=== PATIENT | male | born 1985 | race Caucasian/White ===

== ENCOUNTER 2017-05-05 09:25 | Day surgery (SDC) | payer BC ==
[~2017-05-05 09:25] MED LIST: Bupivacaine 25%/EPINEPHrine/PF 30 ML ONE; Lactated Ringers 1,000 ML IV SCH; Octyl 2-Cyanoacrylate 1 Tube ONE; ceFAZolin 2 GM in Premix Bag 1 BAG IV ONE
[2017-05-05] MEDS ORDERED: Succinylcholine/Normal Saline 200 MG/10 ML Syringe ONE (10:03)
[2017-05-05] MEDS ORDERED: fentaNYL 100 MCG/2 ML SDV ONE (10:03)
[2017-05-05] MEDS ORDERED: Lidocaine 2% 5 ML SDV ONE (10:03)
[2017-05-05] MEDS ORDERED: Propofol 200 MG/20 ML SDV ONE (10:03)
[2017-05-05] MEDS ORDERED: Rocuronium 10 MG/ML 10 ML Syringe ONE (10:03)
[2017-05-05] MEDS ORDERED: Midazolam 1 MG/ML 2 ML SDV ONE (10:04)
[2017-05-05] MEDS ORDERED: Sodium Chloride 0.9% 20 ML ONE (10:10)
[2017-05-05] MEDS ORDERED: ceFAZolin 1 GM Vial ONE (10:10)
[2017-05-05] MEDS ORDERED: fentaNYL 100 MCG/2 ML SDV IVPUSH PRN (10:24)
--- NOTE | 2017-05-05 10:44 | PCM.PREANE ---
Preanesthetic Assessment - Anesthesia/Transfusion/Family Hx Anesthesia History: Prior Anesthesia Without Reaction Family History of Anesthesia Reaction: No Transfusion History: No Prior Transfusion(s) Intubation History: Unknown - Review of Systems General: No Symptoms Pulmonary: No Symptoms Cardiovascular: No Symptoms Gastrointestinal: No Symptoms Neurological: No Symptoms Other: Reports: None - Physical Assessment NPO Status Date: 05/04/17 NPO Status Time: 23:00 O2 Sat by Pulse Oximetry: 96 Respiratory Rate: 16 Vital Signs: Last Vital Signs Temp Pulse 71 05/05/17 09:35 Resp 16 05/05/17 09:35 BP 134/80 05/05/17 09:35 Pulse Ox 96 05/05/17 09:35 Height: 1.78 m Weight: 98.883 kg ASA Class: 2 Mental Status: Alert & Oriented x3 Airway Class: Mallampati = 2 Dentition: Reports: Normal Dentition Thyro-Mental Finger Breadths: 3 Mouth Opening Finger Breadths: 2 ROM/Head Extension: Full Lungs: Clear to Auscultation, Normal Respiratory Effort Cardiovascular: Regular Rate, Regular Rhythm - Allergies Allergies/Adverse Reactions: Allergies Allergy/AdvReac Type Severity Reaction Status Date / Time No Known Allergies Allergy Verified 05/02/17 12:56 - Blood Blood Available: No - Anesthesia Plan Pre-Op Medication Ordered: None - Acknowledgements Anesthesia Type Planned: General Anesthesia Pt an Appropriate Candidate for the Planned Anesthesia: Yes Alternatives and Risks of Anesthesia Discussed w Pt/Guardian: Yes Pt/Guardian Understands and Agrees with Anesthesia Plan: Yes PreAnesthesia Questionnaire HEENT History: Reports: Other (See Below) Other HEENT History: wears glasses Cardiovascular History: Reports: Other (See Below) (h/o increased cholesterol) Gastrointestinal History: Reports: None Genitourinary History: Reports: None Neurological History: Reports: Migraines Endocrine/Metabolic History: Reports: Obesity/BMI 30+ - Past Surgical History Head Surgeries/Procedures: Reports: None GI Surgical History: Reports: Hernia, Inguinal (at age 1) Male Surgical History: Reports: Other (See Below) Other Male Surgeries/Procedures: patt testicular biopsy - SUBSTANCE USE Smoking Status *Q: Never Smoker Recreational Drug Use History: No - HOME MEDS Home Medications: Home Meds ZOLMitriptan [Zolmitriptan Odt] 1 tab SL ASDIRECTED PRN 05/02/17 [History] - CURRENT (IN HOUSE) MEDS Current Meds: Current Medications Fentanyl (Sublimaze) 50 - 100 mcg IVPUSH Q5M PRN PRN Reason: Pain Stop: 05/05/17 13:30 Lactated Ringer's (Ringers, Lactated) 1,000 mls @ 125 mls/hr IV ASDIRECTED SHANIA Last Admin: 05/05/17 09:41 Dose: 125 mls/hr Discontinued Medications Cefazolin Sodium (Ancef) Confirm Administered Dose 2 gm .ROUTE .STK-MED ONE Stop: 05/05/17 10:11 Fentanyl (Sublimaze) Confirm Administered Dose 100 mcg .ROUTE .STK-MED ONE Stop: 05/05/17 10:04 Cefazolin Sodium/Dextrose 2 gm (/ Premix) 50 mls @ 100 mls/hr IV ONETIME ONE Stop: 05/05/17 05:29 Bupivacaine HCl/Epinephrine Bitart (Sensorc Mpf 0.25%-Epi 1:[id number]) Confirm Administered Dose 30 mls @ as directed .ROUTE .STK-MED ONE Stop: 05/05/17 09:12 Sodium Chloride (Normal Saline) Confirm Administered Dose 20 mls @ as directed .ROUTE .STK-MED ONE Stop: 05/05/17 10:11 Lidocaine (Xylocaine-Mpf 2%) Confirm Administered Dose 5 ml .ROUTE .STK-MED ONE Stop: 05/05/17 10:04 Midazolam HCl (Versed 1 Mg/Ml) Confirm Administered Dose 2 mg .ROUTE .STK-MED ONE Stop: 05/05/17 10:05 Octyl Cyanoacrylate (Dermabond Advance) Confirm Administered Dose 1 applic .ROUTE .STK-MED ONE Stop: 05/05/17 09:12 Propofol (Diprivan 20 Ml) Confirm Administered Dose 200 mg .ROUTE .STK-MED ONE Stop: 05/05/17 10:04 Rocuronium Emmet (Zemuron) Confirm Administered Dose 100 mg .ROUTE .STK-MED ONE Stop: 05/05/17 10:04 Succinylcholine Chloride (Succinylcholine In Ns Pf) Confirm Administered Dose 200 mg .ROUTE .STK-MED ONE Stop: 05/05/17 10:04
[2017-05-05] MEDS ORDERED: Ondansetron 4 MG/2 ML SDV ONE (11:37)
[2017-05-05] MEDS ORDERED: Ketorolac 30 MG/ML SDV ONE (11:37)
[2017-05-05] MEDS ORDERED: Neostigmine Methylsulfate 1 MG/ML 5 ML Syringe ONE (11:37)
[2017-05-05] MEDS ORDERED: Glycopyrrolate 0.2 MG/ML SDV ONE (11:37)
[2017-05-05] MEDS ORDERED: HYDROmorphone 2 MG/ML SDV ONE (11:49)
--- NOTE | 2017-05-05 12:22 | PCM.OPNOTE ---
- General Post-Op/Procedure Note Date of Surgery/Procedure: 05/05/17 Operative Procedure(s): incarcerated umb hernia rep, no mesh used Findings: small hernia neck 8 mm, large hernia sac 20 mm, with omentum, rep primary, no mesh used;[id number] Pre Op Diagnosis: incarcerated umb hernia Post-Op Diagnosis: Same Anesthesia Technique: General ET Tube Primary Surgeon: Bunny Duron Pathology: sent Condition: Good
[2017-05-05] MEDS ORDERED: Acetaminophen/oxyCODONE 325-10 MG Tab PO ONE (12:56)
--- NOTE | 2017-05-05 12:57 | PCM.POSTAN ---
POST ANESTHESIA ASSESSMENT - MENTAL STATUS Mental Status: Alert, Oriented - VITAL SIGNS Pulse Rate: 70 SaO2: 96 Resp Rate: 9 Blood Pressure: 124/76 - RESPIRATORY Respiratory Status: Respiratory Rate WNL, Airway Patent, O2 Saturation Stable - CARDIOVASCULAR CV Status: Pulse Rate WNL, Blood Pressure Stable - GASTROINTESTINAL GI Status: No Symptoms - PAIN Pain Score: 2 - POST OP HYDRATION Hydration Status: Adequate & Stable
--- NOTE | 2017-05-06 06:30 | OR ---
SURGEON: Bunny Duron MD DATE OF PROCEDURE: 05/05/2017 PREOPERATIVE DIAGNOSIS: Incarcerated umbilical hernia. POSTOPERATIVE DIAGNOSIS: Incarcerated umbilical hernia. PROCEDURE PERFORMED: Primary repair of above without using mesh. COMPLICATIONS: None. FINDINGS: There is a very small fascial defect of about 8 to 9 mm, and the hernia sac is much larger was about 20 mm with omentum trapped inside. Repair primary, no mesh used. PROCEDURE IN DETAIL: The patient was taken to the operating room and placed in supine position, and upon induction of general endotracheal anesthesia, the patient's abdomen was prepped and draped in a sterile fashion and time-out was being called, the patient identified and procedure identified. Ancef IV 2 g was given. Procedure was then started. IV Ioban was applied prophylactically using a skin scalpel. Infraumbilical incision was made and dissected around the umbilical stalk and opened up the hernia sac and found to have omentum trapped inside. The neck of the hernia is too small to have the thing pushed back and opened up the neck much larger and then dissected around the adhesions surrounding the hernia content and then was pushed back into the peritoneal cavity all the surrounding and circumferentially was cleared and then using 0 Ethibond simple interrupted, the repair was placed and after finished repair, on examination, there is no more hernia. Umbilicus was recreated by use of 3-0 Vicryl followed with 4-0 Monocryl to approximate the skin and Dermabond. The patient was then awakened, extubated, and transferred to recovery in hemodynamically stable condition. The patient tolerated the procedure well. There were no intraoperative complications. Dr. Duron was present through the whole procedure. As always, thank you for the kind referral. ZAIDA / MATT /[id number]
== END 2017-05-05 14:35 | disposition home or self-care (01) ==
LOC: MW.SDS 09:25
PROVIDERS: ATTEND Surgery
DX: K42.0 Umbilical hernia with obstruction, without gangrene (principal); J30.9 Allergic rhinitis, unspecified; G43.909 Migraine, unspecified, not intractable, without status migrainosus; E66.9 Obesity, unspecified; Z68.31 Body mass index [BMI] 31.0-31.9, adult; Z98.890 Other specified postprocedural states
CPT/HCPCS: 49587; A9270; J0690; J1170; J1885; J2250; J2405; J3010; J7120; 00830; 88302; J2704